=== PATIENT | male | born 1955 | race Caucasian/White ===

== ENCOUNTER 2019-06-21 07:58 | Emergency (ER) | payer OTHER ==
[~2019-06-21] VITALS: Ht 177.8 cm; Wt 87.0 kg
[2019-06-21 08:00] VITALS: BP 133/85
--- NOTE | 2019-06-21 08:25 | NUR ---
FIRST CONTACT WITH PT. PT C/O RIGHT KNEE PAIN S/P SURGERY. PAIN LEVEL IS 4/10 AT THIS TIME. PT'S AOX4. RESPS EVEN AND UNLABOARED. PT DENIES ANY OTHER SYMPTOMS.
--- NOTE | 2019-06-21 10:46 | NUR ---
EDMD AT BEDSIDE TO EXPLAIN ALL RESULTS AT THIS TIME.
[2019-06-21] MEDS ORDERED: HYDROcodone/APAP 5/325 TABLET PO ONE (11:00)
[2019-06-21] MEDS ORDERED: HYDROcodone/APAP 5/325 TABLET ONE (11:04)
--- NOTE | 2019-06-21 11:07 | NUR ---
pt medicated per emar. pt tolerated well.
--- NOTE | 2019-06-21 11:11 | NUR ---
Patient given discharge instructions and they have confirmed that they understand the instructions.
== END 2019-06-21 11:13 ==
LOC: ED 11:07
DX: S83.206A Unspecified tear of unspecified meniscus, current injury, right knee, initial encounter (principal); X58.XXXA Exposure to other specified factors, initial encounter; Y93.89 Activity, other specified; Y92.89 Other specified places as the place of occurrence of the external cause; Y99.8 Other external cause status
CPT/HCPCS: 29505; 99284